=== PATIENT | female | born 1970 | race Caucasian/White ===

== ENCOUNTER 2017-08-26 16:52 | Emergency (ER) | payer MEDICARE, OTHER ==
[2017-08-26] MEDS: ONDANSETRON ODT 4 MG TAB.RAPDIS. PO (18:29)
[2017-08-26] MEDS: NAPROXEN 500 MG TABLET PO (18:29)
[2017-08-26] MEDS: CYCLOBENZAPRINE 10 MG TABLET. PO (18:29)
[2017-08-26] MEDS: HYDROcodone/APAP 5/325MG 1 TAB TABLET PO (18:30)
== END 2017-08-26 18:32 | disposition home or self-care (01) ==
LOC: ER 16:52
DX: S70.01XA Contusion of right hip, initial encounter (principal); S40.011A Contusion of right shoulder, initial encounter; S70.11XA Contusion of right thigh, initial encounter; I10 Essential (primary) hypertension; Z86.14 Personal history of Methicillin resistant Staphylococcus aureus infection; Z90.49 Acquired absence of other specified parts of digestive tract; Z90.710 Acquired absence of both cervix and uterus; Z88.0 Allergy status to penicillin; Z88.2 Allergy status to sulfonamides; Z88.5 Allergy status to narcotic agent; W10.9XXA Fall (on) (from) unspecified stairs and steps, initial encounter; Y93.89 Activity, other specified; Y99.8 Other external cause status; Y92.89 Other specified places as the place of occurrence of the external cause
CPT/HCPCS: 73080; 73502; 99284; Q0162

== ENCOUNTER 2018-02-08 11:23 | Emergency (ER) | payer MEDICARE ==
[2018-02-08 11:47] LABS: BILIRUBIN,URINE NEGATIVE (NEG); CLARITY,URINE CLEAR; COLOR,URINE YELLOW; GLUCOSE,URINE NEGATIVE (NEG); NITRITE,URINE NEGATIVE (NEG); PH,URINE 6.5; PROTEIN,URINE NEGATIVE (NEG-TRACE); UROBILINOGEN,URINE 0.2 mg/dL (0.2 mg/dL)
[2018-02-08 11:58] LABS: BACTERIA,URINE 0 /HPF (0-FEW); RBC,URINE 0 /HPF (0-2); SQUAMOUS EPITHELIAL CELL,UR MOD /LPF; WBC,URINE 0 /HPF (0-4)
[2018-02-08 12:26] LABS: ADD MAN DIFF? NO
[2018-02-08 12:37] LABS: BASO # 0.1 x10^3/uL (0.0-0.2); BASO % 1 % (0-3); EOS # 0.3 x10^3/uL (0.0-0.7); EOS % 3 % (0-3); HEMATOCRIT 46.6 % (36.0-47.0); HEMOGLOBIN 16.1 g/dL (12.0-15.5); LYMPH # 2.8 x10^3/uL (1.0-4.8); LYMPH % 25 % (24-48); MEAN CORPUSCULAR HEMOGLOBIN 31 pg (25-35); MEAN CORPUSCULAR HGB CONC 35 g/dL (31-37); MEAN CORPUSCULAR VOLUME 89 fL (79-100); MONO # 0.6 x10^3/uL (0.0-1.1); MONO % 6 % (0-9); NEUT # 7.5 x10^3uL (1.8-7.7); NEUT % 66 % (31-73); PLATELET COUNT 249 x10^3/uL (140-400); RED BLOOD COUNT 5.24 x10^6/uL (3.50-5.40); RED CELL DISTRIBUTION WIDTH 13.8 % (11.5-14.5); WHITE BLOOD COUNT 11.4 x10^3/uL (4.0-11.0)
[2018-02-08] MEDS: IV NORMAL SALINE 1000ML BAG 1,000 ML IV (12:42)
[2018-02-08] MEDS: KETOROLAC 30 MG/ML INJ. IV (12:43)
[2018-02-08 12:44] LABS: ANION GAP 7 (6-14); BLOOD UREA NITROGEN 8 mg/dL (7-20); BUN/CREATININE RATIO 9 (6-20); CALCIUM 9.3 mg/dL (8.5-10.1); CARBON DIOXIDE 32 mmol/L (21-32); CHLORIDE 101 mmol/L (98-107); CREATININE 0.9 mg/dL (0.6-1.0); GFR 67.7; GLUCOSE 94 mg/dL (70-99); POTASSIUM 3.6 mmol/L (3.5-5.1); SODIUM 140 mmol/L (136-145)
[2018-02-08 12:58] LABS: ALBUMIN 3.8 g/dL (3.4-5.0); ALK PHOS 70 U/L (46-116); ALT (SGPT) 24 U/L (14-59); AST (SGOT) 20 U/L (15-37); LIPASE 117 U/L (73-393); TOTAL BILIRUBIN 0.6 mg/dL (0.2-1.0); TOTAL PROTEIN 7.5 g/dL (6.4-8.2)
== END 2018-02-08 13:23 | disposition home or self-care (01) ==
LOC: ER 11:23
DX: R10.9 Unspecified abdominal pain (principal); I10 Essential (primary) hypertension; Z90.711 Acquired absence of uterus with remaining cervical stump; Z90.49 Acquired absence of other specified parts of digestive tract; Z86.14 Personal history of Methicillin resistant Staphylococcus aureus infection; Z88.0 Allergy status to penicillin; Z88.2 Allergy status to sulfonamides; Z88.5 Allergy status to narcotic agent
CPT/HCPCS: 36415; 71046; 74176; 80053; 81001; 83690; 85025; 96374; 99285-25; J1885; J7030

== ENCOUNTER 2018-03-13 14:48 | Emergency (ER) | payer MEDICARE | END 2018-03-13 15:15 | disposition home or self-care (01) | LOC: ER 15:15 | DX: B02.9 Zoster without complications (principal); Z86.14 Personal history of Methicillin resistant Staphylococcus aureus infection; I10 Essential (primary) hypertension; Z88.0 Allergy status to penicillin; Z88.2 Allergy status to sulfonamides; Z88.5 Allergy status to narcotic agent | CPT/HCPCS: 99283 ==

== ENCOUNTER 2018-05-01 14:47 | Emergency (ER) | payer SELFPAY ==
[~2018-05-01] VITALS: Ht 170.2 cm; Wt 88.5 kg
[~2018-05-01 14:47] MED LIST: ACYC400T PO; CEPH-264 PO; CYCL10TA2 PO; DICL50TA4 PO; DOCU-109 PO; DOCU50CA9 PO; DOXY50SY PO; HYDR-2678 PO; HYDR-971 PO; MUPI1OIN NS; OXYC-323 PO; OXYC1TAB7 PO; OXYC1TAB8 PO; SULF1TAB24 PO
--- NOTE | 2018-05-01 15:31 | PHYS DOC ---
Past Medical History Past Medical History: Abscess, Hypertension Additional Past Medical Histor: STAPH INFECTIONS/MRSA Past Surgical History: Cholecystectomy, Hysterectomy Additional Past Surgical Histo: partial hysterectomy, multiple abscess drainages Smoking: Cigarettes, 1 Pack Per Day Alcohol Use: Occasionally Drug Use: None Adult General Chief Complaint Chief Complaint: CHEST PAIN HPI HPI Patient is a 47-year-old female who presents to the emergency department via EMS. She states that for the past 2-3 days, she has had some intermittent anterior chest discomfort. She describes it as an achiness. She does a lot of heavy lifting at work and thought it might be related to her work, or the fact that she is under a lot of stress. She states she has not had chest pain before like this, however. She states exertion does not seem to worsen her pain, nor does deep breathing. The pain does not radiate. It seems to be worsened somewhat after eating. She is not having any pain at this time. Because her pain was ongoing throughout the past 2 days at work, the patient decided to come to the emergency department. She was not having any pain by the time the ambulance arrived, but she was given aspirin, and nitroglycerin via EMS. She denies any chest pain at this time. She denies having had any shortness of breath, nausea, vomiting, or diarrhea. Other than as stated above, there are no alleviating, or exacerbating factors to the patient's symptoms. Review of Systems Review of Systems Constitutional: Denies fever or chills [] Eyes: Denies change in visual acuity, redness, or eye pain [] HENT: Denies nasal congestion or sore throat [] Respiratory: Denies cough or shortness of breath [] Cardiovascular: No additional information not addressed in HPI [] GI: Denies abdominal pain, nausea, vomiting, bloody stools or diarrhea [] : Denies dysuria or hematuria [] Musculoskeletal: Denies back pain or joint pain [] Integument: Denies rash or skin lesions [] Neurologic: Denies headache, focal weakness or sensory changes [] Endocrine: Denies polyuria or polydipsia [] All other systems were reviewed and found to be within normal limits, except as documented in this note. Current Medications Current Medications Current Medications Medications (Trade) Dose Ordered Sig/Eddi Start Time Stop Time Status Last Admin Dose Admin Potassium Chloride (Klor-Con) 40 meq 1X ONCE 05/01/18 16:30 05/01/18 16:32 DC Allergies Allergies Allergies Coded Allergies Type Severity Reaction Last Updated Verified Penicillins Allergy Intermediate 07/11/14 Yes Sulfa (Sulfonamide Antibiotics) Allergy Intermediate 07/11/14 Yes codeine Allergy Intermediate MORPHINE OK 07/11/14 Yes Physical Exam Physical Exam PHYSICAL EXAM: CONSTITUTIONAL: Well developed, well nourished HEAD: normocephalic, atraumatic EENT: PERRL, EOMI. Conjunctivae normal color, sclerae non-icteric; moist mucous membranes. NECK: Supple, non-tender; no meningismus. LUNGS: Lungs CTA, breathing even and unlabored. Normal air movement. HEART: Regular rate and rhythm, no murmur CHEST: No deformity; non-tender ABDOMEN: The abdomen is soft, and non-tender, no masses or bruits. EXTREM: Normal ROM; no deformity, no calf tenderness. Normal pulses palpable in all extremities. There is no pedal edema. SKIN: No rash; no diaphoresis NEURO: Alert; normal speech and cognition; CN's grossly intact; strength grossly intact without focal deficit. BACK: No CVA TTP. Current Patient Data Vital Signs Vital Signs Date Time Temp Pulse Resp B/P (MAP) Pulse Ox O2 Delivery O2 Flow Rate FiO2 05/01/18 14:52 98.7 86 20 163/87 (112) 96 Room Air 98.7 Lab Values Laboratory Tests Test 05/01/18 15:30 White Blood Count 9.8 x10^3/uL (4.0-11.0) Red Blood Count 4.77 x10^6/uL (3.50-5.40) Hemoglobin 14.5 g/dL (12.0-15.5) Hematocrit 41.4 % (36.0-47.0) Mean Corpuscular Volume 87 fL (79-100) Mean Corpuscular Hemoglobin 31 pg (25-35) Mean Corpuscular Hemoglobin Concent 35 g/dL (31-37) Red Cell Distribution Width 13.7 % (11.5-14.5) Platelet Count 214 x10^3/uL (140-400) Neutrophils (%) (Auto) 69 % (31-73) Lymphocytes (%) (Auto) 22 % (24-48) L Monocytes (%) (Auto) 6 % (0-9) Eosinophils (%) (Auto) 2 % (0-3) Basophils (%) (Auto) 1 % (0-3) Neutrophils # (Auto) 6.8 x10^3uL (1.8-7.7) Lymphocytes # (Auto) 2.2 x10^3/uL (1.0-4.8) Monocytes # (Auto) 0.6 x10^3/uL (0.0-1.1) Eosinophils # (Auto) 0.2 x10^3/uL (0.0-0.7) Basophils # (Auto) 0.1 x10^3/uL (0.0-0.2) Sodium Level 142 mmol/L (136-145) Potassium Level 3.1 mmol/L (3.5-5.1) L Chloride Level 104 mmol/L (98-107) Carbon Dioxide Level 27 mmol/L (21-32) Anion Gap 11 (6-14) Blood Urea Nitrogen 11 mg/dL (7-20) Creatinine 0.8 mg/dL (0.6-1.0) Estimated GFR (Cockcroft-Gault) 77.6 BUN/Creatinine Ratio 14 (6-20) Glucose Level 98 mg/dL (70-99) Calcium Level 9.1 mg/dL (8.5-10.1) Magnesium Level 2.1 mg/dL (1.8-2.4) Total Bilirubin 0.5 mg/dL (0.2-1.0) Aspartate Amino Transferase (AST) 19 U/L (15-37) Alanine Aminotransferase (ALT) 25 U/L (14-59) Alkaline Phosphatase 75 U/L (46-116) Troponin I Quantitative < 0.017 ng/mL (0.000-0.055) VM-Mzg-D-Type Natriuretic Peptide 153 pg/mL (0-124) H Total Protein 6.8 g/dL (6.4-8.2) Albumin 3.9 g/dL (3.4-5.0) Albumin/Globulin Ratio 1.3 (1.0-1.7) Lipase 113 U/L (73-393) Laboratory Tests 05/01/18 15:30 Laboratory Tests 05/01/18 15:30 EKG EKG [Normal sinus rhythm at a rate of 79 beats for minute, normal axis, normal intervals. There are no acute ischemic ST/T changes.] Radiology/Procedures Radiology/Procedures [PROCEDURE: PORTABLE CHEST 1V Portable chest, 05/01/2018: HISTORY: Chest pain Comparison is made to a study from 02/08/2018. The heart size and pulmonary vascularity are normal. No pulmonary infiltrate is seen. There is no evidence of pleural fluid. IMPRESSION: No acute cardiopulmonary abnormality is detected.] Course & Med Decision Making Course & Med Decision Making Pertinent Labs and Imaging studies reviewed. (See chart for details) [4:40 PM: The patient's condition remained stable.I had an extensive discussion with the patient about the limitations of ER cardiac evaluation in definitively ruling out acute coronary syndrome. We discussed limitation of the ER evaluation and a singe ED troponin in r/o AMI, and the risks involved in missed diagnosis of acute coronary syndrome including or permanent debility. I recommended overnight observation for further formal cardiac evaluation to rule out acute coronary syndrome. After expressing understanding of the limitations of ER cardiac evaluation, as well as the risks of missed diagnosis, the patient declined further cardiac evaluation at this time. The patient was mentally competent, and given opportunity to ask questions about the diagnosis and recommended plan of care. I stressed the importance of outpatient follow-up, and returning to the emergency department for new or worsening symptoms, or if the patient is agreeable to undergo further cardiac evaluation. ] Dragon Disclaimer Dragon Disclaimer This electronic medical record was generated, in whole or in part, using a voice recognition dictation system. Departure Departure Impression: Primary Impression: Atypical chest pain Disposition: HOME, SELF-CARE Condition: STABLE Referrals: EMANUEL BRAVO MD (PCP) Patient Instructions: Chest Pain (Nonspecific) Additional Instructions: Begin taking 81 mg of aspirin once daily. Follow-up with your primary care provider for further evaluation within the next 2-3 days. Please call to schedule appointment. Return to medical care for any new, or worsening symptoms , development of recurrent or worsening chest pain, or any other concerning symptoms. BETSY THOMAS MD May 01, 2018 15:31
[2018-05-01 15:53] LABS: BASO # 0.1 x10^3/uL (0.0-0.2); BASO % 1 % (0-3); EOS # 0.2 x10^3/uL (0.0-0.7); EOS % 2 % (0-3); HEMATOCRIT 41.4 % (36.0-47.0); HEMOGLOBIN 14.5 g/dL (12.0-15.5); LYMPH # 2.2 x10^3/uL (1.0-4.8); LYMPH % 22 % (24-48); MEAN CORPUSCULAR HEMOGLOBIN 31 pg (25-35); MEAN CORPUSCULAR HGB CONC 35 g/dL (31-37); MEAN CORPUSCULAR VOLUME 87 fL (79-100); MONO # 0.6 x10^3/uL (0.0-1.1); MONO % 6 % (0-9); NEUT # 6.8 x10^3uL (1.8-7.7); NEUT % 69 % (31-73); PLATELET COUNT 214 x10^3/uL (140-400); RED BLOOD COUNT 4.77 x10^6/uL (3.50-5.40); RED CELL DISTRIBUTION WIDTH 13.7 % (11.5-14.5); WHITE BLOOD COUNT 9.8 x10^3/uL (4.0-11.0)
--- NOTE | 2018-05-01 15:53 | EKG ---
[facility] [address] [place] [address] Test Date: 2018-05-01 Test Time: 15:01:36 Pat Name: MIKIE LONDONO Department: Room: Gender: Female Director Of Cardiopulmonary Services: DORIS GASTELUM : 1970 Requested By: BETSY THOMAS Order Number: [id number] Reading MD: Neri Gutierrez Measurements Intervals [place] Rate: 79 P: 53 TN: 158 QRS: 50 QRSD: 84 T: 64 QT: 382 QTc: 439 Interpretive Statements SINUS RHYTHM Electronically Signed On 05-02-2018 11:27:47 CDT by Neri Gutierrez
[2018-05-01 16:06] LABS: CALCIUM 9.1 mg/dL (8.5-10.1); CREATININE 0.8 mg/dL (0.6-1.0); GFR 77.6; POTASSIUM 3.1 mmol/L (3.5-5.1)
[2018-05-01 16:15] LABS: ALBUMIN 3.9 g/dL (3.4-5.0); ALBUMIN/GLOBULIN RATIO 1.3 (1.0-1.7); MAGNESIUM 2.1 mg/dL (1.8-2.4); TOTAL BILIRUBIN 0.5 mg/dL (0.2-1.0); TOTAL PROTEIN 6.8 g/dL (6.4-8.2)
--- NOTE | 2018-05-01 16:18 | RAD ---
Portable chest, 05/01/2018: HISTORY: Chest pain Comparison is made to a study from 02/08/2018. The heart size and pulmonary vascularity are normal. No pulmonary infiltrate is seen. There is no evidence of pleural fluid. IMPRESSION: No acute cardiopulmonary abnormality is detected. Electronically signed by: Phil Mahmood MD (05/01/2018 4:15 PM) [facility]
[2018-05-01] MEDS ORDERED: POTASSIUM CHLORIDE 20 MEQ TABLET.ER. PO ONE (16:30)
[2018-05-01 16:57] VITALS: BP 169/82
== END 2018-05-01 17:18 | disposition home or self-care (01) ==
LOC: ER 14:47
DX: R07.89 Other chest pain (principal); I10 Essential (primary) hypertension; F17.210 Nicotine dependence, cigarettes, uncomplicated; Z90.49 Acquired absence of other specified parts of digestive tract; Z90.710 Acquired absence of both cervix and uterus; Z88.0 Allergy status to penicillin; Z88.2 Allergy status to sulfonamides; Z88.5 Allergy status to narcotic agent
CPT/HCPCS: 36415; 71045; 80053; 83690; 83735; 83880; 84484; 85025; 93005; 99285-25

== ENCOUNTER 2018-12-20 15:39 | Emergency (ER) | payer OTHER, SELFPAY ==
[~2018-12-20] VITALS: Ht 170.2 cm; Wt 97.3 kg
[~2018-12-20 15:39] MED LIST changes: +HYDR-3164 PO; -HYDR-971 PO; -OXYC-323 PO; +OXYC1TAB15 PO
[2018-12-20 16:27] VITALS: BP 238/114
[2018-12-20] MEDS ORDERED: PRED20TA PO (17:02)
--- NOTE | 2018-12-20 17:02 | PHYS DOC ---
Past Medical History Past Medical History: Abscess, Hypertension, MRSA Additional Past Medical Histor: STAPH INFECTIONS/MRSA Past Surgical History: Cholecystectomy, Hysterectomy Additional Past Surgical Histo: partial hysterectomy, multiple abscess drainages Additional Information: 6 cigarettes daily Alcohol Use: None Drug Use: None Adult General Chief Complaint Chief Complaint: SKIN RASH/ABSCESS [facility] HPI Patient is a 48 year old [Female] who presents with [5 days rash to bilateral arms. Reports she has been trying calomine lotion but it has not seemed to help at all. States it is itchy and irritating. Reports no new soaps, lotions, or shampoo, no pets in the home, no family members in home with similar symptoms.Has not had this issue in the past, does report she has a history of abscesses, to her arm, no report of abscess today or similar symptoms. Reports she did not take her blood pressure medication this morning, as she had to leave for work early and did not take it. does take medication daily without missing typically. ] Review of Systems Review of Systems Constitutional: Denies fever or chills [] Eyes: Denies change in visual acuity, redness, or eye pain [] HENT: Denies nasal congestion or sore throat [] Respiratory: Denies cough or shortness of breath [] Cardiovascular: No additional information not addressed in HPI [] GI: Denies abdominal pain, nausea, vomiting, bloody stools or diarrhea [] : Denies dysuria or hematuria [] Musculoskeletal: Denies back pain or joint pain [] Integument:Reports rash and skin lesions to forearms and posterior legs, starting to appear to anterior chest [] All other systems were reviewed and found to be within normal limits, except as documented in this note. Allergies Allergies Allergies Coded Allergies Type Severity Reaction Last Updated Verified Penicillins Allergy Intermediate 07/11/14 Yes Sulfa (Sulfonamide Antibiotics) Allergy Intermediate 07/11/14 Yes codeine Allergy Intermediate MORPHINE OK 07/11/14 Yes Physical Exam Physical Exam Constitutional: Well developed, well nourished, no acute distress, non-toxic appearance. [] Neck: Normal range of motion, no tenderness, supple, no stridor. [] Cardiovascular:Heart rate regular rhythm, no murmur [] Lungs & Thorax: Bilateral breath sounds clear to auscultation [] Skin: Warm, dry, no erythema. Patchy, dry, mildly erythematous rash noted to bilateral posterior legs, posterior forearms, small amount to upper chest, similar to contact dermatitis. [] Back: No tenderness, no CVA tenderness. [] Extremities: No tenderness, no cyanosis, no clubbing, ROM intact, no edema. [] Neurologic: Alert and oriented X 3, normal motor function, normal sensory function, no focal deficits noted. [] Psychologic: Affect normal, judgement normal, mood normal. [] Current Patient Data Vital Signs Vital Signs Date Time Temp Pulse Resp B/P (MAP) Pulse Ox O2 Delivery O2 Flow Rate FiO2 12/20/18 16:27 98.8 79 18 238/114 (155) 97 Room Air 98.8 EKG EKG [] Radiology/Procedures Radiology/Procedures [] Course & Med Decision Making Course & Med Decision Making Discussed findings with patient, discussed use of steroids, patient in agreement with plan of care as this time without further questions or concerns. Will follow up with PCP as needed. [] Dragon Disclaimer Dragon Disclaimer This electronic medical record was generated, in whole or in part, using a voice recognition dictation system. Departure Departure Impression: Primary Impression: Dermatitis Disposition: HOME, SELF-CARE Referrals: NO PCP (PCP) Patient Instructions: Contact Dermatitis, [id number] Additional Instructions: As we discussed, follow up with your primary care provider if you do not improve. You can continue to use calomine lotion if you want Scripts Prednisone (PREDNISONE) 20 Mg Tablet 1 TAB PO DAILY for pruritis for 7 Days, #7 TAB Prov: HENNA MAN APRN 12/20/18 HENNA MAN APRN December 20, 2018 17:02
[2019-01-09] MEDS ORDERED: TRAM50TA PO (00:21)
[2019-01-09] MEDS ORDERED: LISI-334 PO (00:21)
== END 2018-12-20 17:20 | disposition home or self-care (01) ==
LOC: ER 15:39
DX: L25.9 Unspecified contact dermatitis, unspecified cause (principal); I10 Essential (primary) hypertension; Z86.14 Personal history of Methicillin resistant Staphylococcus aureus infection; F17.210 Nicotine dependence, cigarettes, uncomplicated; Z88.0 Allergy status to penicillin; Z88.2 Allergy status to sulfonamides; Z88.5 Allergy status to narcotic agent
CPT/HCPCS: 99283

== ENCOUNTER 2019-08-11 16:05 | Emergency (ER) | payer OTHER ==
[~2019-08-11] VITALS: Ht 170.2 cm; Wt 88.5 kg
[~2019-08-11 16:05] MED LIST changes: +LISI-334 PO; +PRED20TA PO; +TRAM50TA PO
[2019-08-11] MEDS ORDERED: ONDANSETRON PF 4 MG/2 ML VIAL. IVP ONE (16:30)
[2019-08-11] MEDS ORDERED: DICYCLOMINE HCL 10 MG CAPSULE PO ONE (16:30)
[2019-08-11] MEDS ORDERED: fentaNYL PF VIAL 100 MCG/2 ML VIAL IV PRN (16:30)
[2019-08-11] MEDS ORDERED: ONDANSETRON PF 4 MG/2 ML VIAL. IV ONE (16:30)
[2019-08-11] MEDS ORDERED: FAMOTIDINE 20 MG/2 ML VIAL IVP ONE (16:30)
[2019-08-11] MEDS ORDERED: IV NORMAL SALINE 1000ML BAG 1,000 ML IV ONE (16:30)
[2019-08-11 16:38] LABS: BASO % 0 % (0-3); EOS # 0.1 x10^3/uL (0.0-0.7); EOS % 1 % (0-3); HEMATOCRIT 46.2 % (36.0-47.0); HEMOGLOBIN 15.9 g/dL (12.0-15.5); LYMPH # 1.2 x10^3/uL (1.0-4.8); LYMPH % 12 % (24-48); MEAN CORPUSCULAR HEMOGLOBIN 30 pg (25-35); MEAN CORPUSCULAR HGB CONC 35 g/dL (31-37); MEAN CORPUSCULAR VOLUME 87 fL (79-100); MONO # 0.4 x10^3/uL (0.0-1.1); MONO % 4 % (0-9); NEUT # 8.2 x10^3/uL (1.8-7.7); NEUT % 83 % (31-73); PLATELET COUNT 185 x10^3/uL (140-400); RED BLOOD COUNT 5.33 x10^6/uL (3.50-5.40); RED CELL DISTRIBUTION WIDTH 13.5 % (11.5-14.5)
[2019-08-11 16:51] LABS: BILIRUBIN,URINE NEGATIVE (NEG); CLARITY,URINE CLEAR; COLOR,URINE YELLOW; NITRITE,URINE NEGATIVE (NEG); PH,URINE 7.5; PROTEIN,URINE >=300 mg/dL (NEG-TRACE); UROBILINOGEN,URINE 0.2 mg/dL (0.2 mg/dL)
[2019-08-11 16:55] LABS: GFR 59.7; POTASSIUM 3.4 mmol/L (3.5-5.1)
[2019-08-11 16:58] LABS: BARBITURATES NEG (NEG); BENZODIAZEPINES NEG (NEG); CANNABINOIDS NEG (NEG); COCAINE NEG (NEG); METHADONE NEG (NEG); OPIATES NEG (NEG); PHENCYCLIDINE NEG (NEG)
[2019-08-11 17:00] LABS: ALBUMIN 4.3 g/dL (3.4-5.0); ALBUMIN/GLOBULIN RATIO 1.2 (1.0-1.7)
[2019-08-11 17:07] LABS: SQUAMOUS EPITHELIAL CELL,UR FEW /LPF
[2019-08-11 17:08] LABS: AMPHETAMINE/METHAMPHETAMINE NEG (NEG)
[2019-08-11 17:10] LABS: AMORPHOUS SEDIMENT,UR PRESENT /HPF
[2019-08-11 17:11] LABS: BACTERIA,URINE FEW /HPF (0-FEW)
[2019-08-11 17:49] LABS: INFLUENZA A PATIENT NEGATIVE (NEGATIVE); INFLUENZA B PATIENT NEGATIVE (NEGATIVE)
[2019-08-11 18:04] VITALS: BP 180/90
[2019-08-11] MEDS ORDERED: ONDA4TAB12 PO (18:21)
[2019-08-11] MEDS ORDERED: LISI10TA2 PO (18:21)
[2019-08-11] MEDS ORDERED: DICY20TA3 PO (18:21)
--- NOTE | 2019-08-11 18:21 | PHYS DOC ---
Past Medical History Past Medical History: Abscess, Hypertension, MRSA Additional Past Medical Histor: STAPH INFECTIONS/MRSA Past Surgical History: Cholecystectomy, Hysterectomy Additional Past Surgical Histo: partial hysterectomy, multiple abscess drainages Alcohol Use: None Drug Use: None Adult General Chief Complaint Chief Complaint: NAUSEA/VOMITING/DIARRHA HPI HPI Patient is a 48 year old female with history of hypertension presenting to the ED today with nausea vomiting and diarrhea that began today. Patient denies abdominal pain. Denies any hematemesis or melena. She states she feels tired and weak from all the vomiting and diarrhea that began suddenly. Patient was some how noted to be in A. fib per EMS, no arrival to the ED patient is in sinus rhythm no Afib. Has no previous history of A. fib. Patient denies any chest pain or shortness of breath. She reports she has not taken lisinopril for her blood pressure for months. Review of Systems Review of Systems Constitutional: Denies fever or chills [] Eyes: Denies change in visual acuity, redness, or eye pain [] HENT: Denies nasal congestion or sore throat [] Respiratory: Denies cough or shortness of breath [] Cardiovascular: No additional information not addressed in HPI [] GI: Reports nausea, vomiting, diarrhea, denies abdominal pain : Denies dysuria or hematuria [] Musculoskeletal: Denies back pain or joint pain [] Integument: Denies rash or skin lesions [] Neurologic: Denies headache, focal weakness or sensory changes [] All other systems were reviewed and found to be within normal limits, except as documented in this note. Current Medications Current Medications Current Medications Medications (Trade) Dose Ordered Sig/Eddi Start Time Stop Time Status Last Admin Dose Admin Dicyclomine HCl (Bentyl) 20 mg 1X ONCE 08/11/19 16:30 08/11/19 16:31 DC 08/11/19 16:57 20 MG Famotidine (Pepcid Vial) 20 mg 1X ONCE 08/11/19 16:30 08/11/19 16:31 DC 08/11/19 16:56 20 MG Fentanyl Citrate (Fentanyl 2ml Vial) 50 mcg PRN Q15MIN PRN 08/11/19 16:30 08/12/19 16:29 08/11/19 17:25 50 MCG Ondansetron HCl (Zofran) 4 mg 1X ONCE 08/11/19 16:30 08/11/19 16:31 DC 08/11/19 16:25 4 MG Sodium Chloride 1,000 ml @ 1,000 mls/hr 1X ONCE 08/11/19 16:30 08/11/19 17:29 DC 08/11/19 16:25 1,000 MLS/HR Allergies Allergies Allergies Coded Allergies Type Severity Reaction Last Updated Verified Penicillins Allergy Intermediate 07/11/14 Yes Sulfa (Sulfonamide Antibiotics) Allergy Intermediate 07/11/14 Yes codeine Allergy Intermediate MORPHINE OK 07/11/14 Yes Physical Exam Physical Exam Constitutional: Well developed, well nourished, no acute distress, non-toxic appearance. [] HENT: Normocephalic, atraumatic, bilateral external ears normal, oropharynx moist, no oral exudates, nose normal. [] Eyes: PERRLA, EOMI, conjunctiva normal, no discharge. [] Neck: Normal range of motion, no tenderness, supple, no stridor. [] Cardiovascular:Heart rate regular rhythm, no murmur [] Lungs & Thorax: Bilateral breath sounds clear to auscultation [] Abdomen: Bowel sounds normal, soft, no tenderness, no masses, no pulsatile masses. [] Skin: Warm, dry, no erythema, no rash. [] Back: No tenderness, no CVA tenderness. [] Extremities: No tenderness, no cyanosis, no clubbing, ROM intact, no edema. [] Neurologic: Alert and oriented X 3, normal motor function, normal sensory function, no focal deficits noted. Cranial nerves II-XII intact Psychologic: Affect normal, judgement normal, mood normal. [] Current Patient Data Vital Signs Vital Signs Date Time Temp Pulse Resp B/P (MAP) Pulse Ox O2 Delivery O2 Flow Rate FiO2 08/11/19 17:25 18 95 Room Air 08/11/19 16:05 97.7 85 211/107 (141) 97.7 Lab Values Laboratory Tests Test 08/11/19 16:23 08/11/19 16:41 08/11/19 16:44 08/11/19 17:17 White Blood Count 10.0 x10^3/uL (4.0-11.0) Red Blood Count 5.33 x10^6/uL (3.50-5.40) Hemoglobin 15.9 g/dL (12.0-15.5) H Hematocrit 46.2 % (36.0-47.0) Mean Corpuscular Volume 87 fL (79-100) Mean Corpuscular Hemoglobin 30 pg (25-35) Mean Corpuscular Hemoglobin Concent 35 g/dL (31-37) Red Cell Distribution Width 13.5 % (11.5-14.5) Platelet Count 185 x10^3/uL (140-400) Neutrophils (%) (Auto) 83 % (31-73) H Lymphocytes (%) (Auto) 12 % (24-48) L Monocytes (%) (Auto) 4 % (0-9) Eosinophils (%) (Auto) 1 % (0-3) Basophils (%) (Auto) 0 % (0-3) Neutrophils # (Auto) 8.2 x10^3/uL (1.8-7.7) H Lymphocytes # (Auto) 1.2 x10^3/uL (1.0-4.8) Monocytes # (Auto) 0.4 x10^3/uL (0.0-1.1) Eosinophils # (Auto) 0.1 x10^3/uL (0.0-0.7) Basophils # (Auto) 0.0 x10^3/uL (0.0-0.2) Sodium Level 140 mmol/L (136-145) Potassium Level 3.4 mmol/L (3.5-5.1) L Chloride Level 101 mmol/L (98-107) Carbon Dioxide Level 23 mmol/L (21-32) Anion Gap 16 (6-14) H Blood Urea Nitrogen 19 mg/dL (7-20) Creatinine 1.0 mg/dL (0.6-1.0) Estimated GFR (Cockcroft-Gault) 59.7 BUN/Creatinine Ratio 19 (6-20) Glucose Level 150 mg/dL (70-99) H Calcium Level 9.0 mg/dL (8.5-10.1) Magnesium Level 2.0 mg/dL (1.8-2.4) Total Bilirubin 1.0 mg/dL (0.2-1.0) Aspartate Amino Transferase (AST) 17 U/L (15-37) Alanine Aminotransferase (ALT) 9 U/L (14-59) L Alkaline Phosphatase 82 U/L (46-116) Creatine Kinase 47 U/L (26-192) Creatine Kinase MB (Mass) 1.2 ng/mL (0.0-3.6) Creatine Kinase MB Relative Index 2.6 % (0-4) Troponin I Quantitative < 0.017 ng/mL (0.000-0.055) [id number]-Gph-[id number]-Type Natriuretic Peptide 1203 pg/mL (0-124) H Total Protein 8.0 g/dL (6.4-8.2) Albumin 4.3 g/dL (3.4-5.0) Albumin/Globulin Ratio 1.2 (1.0-1.7) Lipase 102 U/L (73-393) Urine Collection Type Void Urine Color Yellow Urine Clarity Clear Urine pH 7.5 Urine Specific [place] 1.015 Urine Protein >=300 mg/dL (NEG-TRACE) Urine Glucose (UA) 100 mg/dL (NEG) Urine Ketones (Stick) 15 mg/dL (NEG) Urine Blood Small (NEG) Urine Nitrite Negative (NEG) Urine Bilirubin Negative (NEG) Urine Urobilinogen Dipstick 0.2 mg/dL (0.2 mg/dL) Urine Leukocyte Esterase Negative (NEG) Urine RBC 3-5 /HPF (0-2) Urine WBC 5-10 /HPF (0-4) Urine Squamous Epithelial Cells Few /LPF Urine Amorphous Sediment Present /HPF Urine Bacteria Few /HPF (0-FEW) Urine Opiates Screen Neg (NEG) Urine Methadone Screen Neg (NEG) Urine Barbiturates Neg (NEG) Urine Phencyclidine Screen Neg (NEG) Urine Amphetamine/Methamphetamine Neg (NEG) Urine Benzodiazepines Screen Neg (NEG) Urine Cocaine Screen Neg (NEG) Urine Cannabinoids Screen Neg (NEG) Urine Ethyl Alcohol Neg (NEG) POC Urine HCG, Qualitative Hcg negative (Negative) Influenza Type A Antigen Negative (NEGATIVE) Influenza Type B Antigen Negative (NEGATIVE) Laboratory Tests 08/11/19 16:23 Laboratory Tests 08/11/19 16:23 EKG EKG [address] Gupta sinus rhythm HR 87 no STEMI[] Radiology/Procedures Radiology/Procedures [] Course & Med Decision Making Course & Med Decision Making Pertinent Labs and Imaging studies reviewed. (See chart for details) This is a 48-year-old female patient presenting to the ED today with nausea vomiting and diarrhea that began sometime this afternoon. EKG done by EMS was noted for Afib but on arrival to the Ed EKG was normal, patient was placed on a monitor no Afib noted. CBC with normal WBC, CMP with no acute findings, urine analysis is noted for dehydration. Patient was given 1 L of IV fluid, Zofran and dicyclomine. She is resting comfortably. She states she feels better. She was discharged to home. Instructed to push fluids, maintain good hand hygiene and follow-up with her own PCP in the course of next week. Dragon Disclaimer Dragon Disclaimer This electronic medical record was generated, in whole or in part, using a voice recognition dictation system. Departure Departure Impression: Primary Impression: Nausea vomiting and diarrhea Disposition: HOME, SELF-CARE Condition: STABLE Referrals: NO PCP (PCP) follow up with your doctor next week Patient Instructions: Diarrhea, [id number], Nausea and Vomiting, [id number] Additional Instructions: You were evaluated in the emergency room for nausea vomiting and diarrhea. Please push fluids. Maintain good hand hygiene. Take the prescribed medications as ordered. Come back to the ED at any point symptoms worsen Scripts Lisinopril (LISINOPRIL) 10 Mg Tablet 1 TAB PO DAILY, #30 TAB Prov: MERNA DIAZ APRN 08/11/19 Dicyclomine Hcl (DICYCLOMINE HCL) 20 Mg Tablet 1 TAB PO TID, #30 TAB 1 Refill Prov: MERNA DIAZ APRN 08/11/19 Ondansetron (ONDANSETRON ODT) 4 Mg Tab.rapdis 1 TAB PO PRN Q6-8HRS, #16 TAB Prov: MERNA DIAZ APRN 08/11/19 MERNA DIAZ APRN Aug 11, 2019 18:21
--- NOTE | 2019-08-13 12:46 | EKG ---
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
== END 2019-08-11 18:33 | disposition home or self-care (01) ==
LOC: ER 16:05
DX: R11.2 Nausea with vomiting, unspecified (principal); R19.7 Diarrhea, unspecified; I10 Essential (primary) hypertension; Z86.14 Personal history of Methicillin resistant Staphylococcus aureus infection; Z90.49 Acquired absence of other specified parts of digestive tract; Z90.711 Acquired absence of uterus with remaining cervical stump; Z88.0 Allergy status to penicillin; Z88.2 Allergy status to sulfonamides; Z88.5 Allergy status to narcotic agent
CPT/HCPCS: 36415; 80053; 80307; 81001; 81025; 82553; 83690; 83735; 83880; 84484; 85025; 87804; 96361; 96374; 96375; 99285; J3010; J3490; J7030; 93005; J2405

== ENCOUNTER 2019-10-26 23:54 | Emergency (ER) | payer OTHER ==
[~2019-10-26] VITALS: Ht 170.2 cm; Wt 92.0 kg
[~2019-10-26 23:54] MED LIST changes: +DICY20TA3 PO; +LISI10TA2 PO; +ONDA4TAB12 PO
[2019-10-27] MEDS ORDERED: LISI10TA2 PO (01:01)
--- NOTE | 2019-10-27 01:02 | PHYS DOC ---
Past Medical History Past Medical History: Abscess, Hypertension, MRSA Additional Past Medical Histor: STAPH INFECTIONS/MRSA (MICHELLE BLACK APRN) Past Surgical History: Cholecystectomy, Hysterectomy Additional Past Surgical Histo: partial hysterectomy, multiple abscess drainages (MICHELLE BLACK APRN) Smoking Status: Current Every Day Smoker Alcohol Use: None Drug Use: None (MICHELLE BLACK APRN) Attending Signature I have participated in the care of this patient and I have reviewed and agree with all pertinent clinical information above including history, exam, and recommendations. (CORNELIA BRADFORD MD) Adult General Chief Complaint Chief Complaint: ANXIETY/PANIC ATTACK HPI HPI Patient is a 49 year old female who presents with high blood pressure after getting extremely stressed at work. The patient states she got an argument at work and that is been stressed out ever since then. The patient also states she is almost out of her lisinopril. The patient's blood pressure in the room on assessment was 212/99. Denies any symptoms. Denies headache, blurry vision, or any other symptoms. Complete ROS were reviewed and found to be within normal limits, except as documented in the HPI (MICHELLE BLACK APRN) Current Medications Current Medications Current Medications Medications (Trade) Dose Ordered Sig/Eddi Start Time Stop Time Status Last Admin Dose Admin Clonidine HCl (Catapres) 0.1 mg 1X ONCE 10/27/19 01:30 10/27/19 01:23 DC 10/27/19 01:13 0.1 MG (CORNELIA BRADFORD MD) Allergies Allergies Allergies Coded Allergies Type Severity Reaction Last Updated Verified Penicillins Allergy Intermediate 07/11/14 Yes Sulfa (Sulfonamide Antibiotics) Allergy Intermediate 07/11/14 Yes codeine Allergy Intermediate MORPHINE OK 07/11/14 Yes (CORNELIA BRADFORD MD) Physical Exam Physical Exam Constitutional: Well developed, well nourished, no acute distress, non-toxic a ppearance. [] HENT: Normocephalic, atraumatic, bilateral external ears normal, oropharynx moist, no oral exudates, nose normal. [] Eyes: PERRLA, EOMI, conjunctiva normal, no discharge. [] Neurologic: Alert and oriented X 3, normal motor function, normal sensory function, no focal deficits noted. [] Psychologic: Affect normal, judgement normal, mood normal. [] (MICHELLE BLACK APRN) Current Patient Data Vital Signs Vital Signs Date Time Temp Pulse Resp B/P (MAP) Pulse Ox O2 Delivery O2 Flow Rate FiO2 10/27/19 01:13 79 206/100 10/27/19 00:04 98.2 16 96 Room Air 98.2 (CORNELIA BRADFORD MD) EKG EKG [] (MICEHLLE BLACK APRN) Radiology/Procedures Radiology/Procedures [] (MICHELLE BLACK APRN) Course & Med Decision Making Course & Med Decision Making Pertinent Labs and Imaging studies reviewed. (See chart for details) We will give clonidine to the patient and then prescribe lisinopril. (MICHELLE BLACK APRN) Dragon Disclaimer Dragon Disclaimer This electronic medical record was generated, in whole or in part, using a voice recognition dictation system. (MICHELLE BLACK APRN) Departure Departure Impression: Primary Impression: Medication refill Additional Impression: Hypertension Disposition: HOME, SELF-CARE Condition: STABLE Referrals: NO PCP (PCP) Patient Instructions: Hypertension, Medication Refill, Emergency Department Additional Instructions: Thank you for visiting [facility]. We appreciate you trusting us with your care. If any additional problems come up don't hesitate to return to visit us. Please follow up with your primary care provider so they can plan additional care if needed and know about the problem that you had. If symptoms worsen come back to the Emergency Department. Any concerning symptoms that start such as chest pain, shortness of air, weakness or numbness on one side of the body, running high fevers or any other concerning symptoms return to the ER. Please fill your medications at any pharmacy and follow the prescription instru ctions. Scripts Lisinopril (LISINOPRIL) 10 Mg Tablet 1 TAB PO DAILY, #30 TAB 0 Refills Prov: MICHELLE BLACK APRN 10/27/19 Problem Qualifiers Additional Impression: Hypertension Hypertension type: unspecified Qualified Codes: I10 - Essential (primary) hypertension MICHELLE BLACK APRN Oct 27, 2019 01:02 CORNELIA BRADFORD MD Oct 27, 2019 03:11
[2019-10-27 01:13] VITALS: BP 206/100
[2019-10-27] MEDS ORDERED: cloNIDine HCL 0.1 MG TABLET PO ONE (01:30)
== END 2019-10-27 01:18 | disposition home or self-care (01) ==
LOC: ER 23:54
DX: I10 Essential (primary) hypertension (principal); Z86.14 Personal history of Methicillin resistant Staphylococcus aureus infection; Z90.49 Acquired absence of other specified parts of digestive tract; Z90.710 Acquired absence of both cervix and uterus; F17.200 Nicotine dependence, unspecified, uncomplicated; Z98.890 Other specified postprocedural states; Z76.0 Encounter for issue of repeat prescription
CPT/HCPCS: 99281